=== PATIENT | female | born 1970 | race Caucasian/White ===

== ENCOUNTER 2016-11-19 22:41 | Emergency (ER) | payer OTHER, MEDICAID ==
[2016-11-19 22:53] VITALS: TEMP 97.3
--- NOTE | 2016-11-19 23:33 | EDPHY ---
H & P Stated Complaint: l sided chest pain to touch and mvmt HPI/ROS: HPI CHIEF COMPLAINT: Left-sided musculoskeletal chest pain HISTORY OF PRESENT ILLNESS: This patient very pleasant 46-year-old female significant past medical history for chronic low back pain and takes anti- inflammatories for this, she presents to the emergency room by private vehicle stating that she has left-sided lateral rib pain it is exquisitely tender when she moves her left arm or has rotation of her neck. She also tells me it hurts when she goes to sit up. Also hurts when you press on her left lateral ribs. She denies any injury. She is adamant that she does not think this is musculoskeletal pain. She does not remember any injury. She denies shortness of breath. She does endorse pleuritic pain with this. denies productive cough, fever. Past Medical History: Chronic low back pain Past Surgical History: No recent surgery Social History: Denies daily use of drugs alcohol tobacco products Family History: Noncontributory ROS REVIEW OF SYSTEMS: A comprehensive 10 point review of systems is otherwise negative aside from elements mentioned in the history of present illness. Exam Constitutional triage nursing summary reviewed, vital signs reviewed, awake/ alert. Eyes normal conjunctivae and sclera, EOMI, PERRLA. HENT normal inspection, atraumatic, moist mucus membranes, no epistaxis, neck supple/ no meningismus, no raccoon eyes. Respiratory clear to auscultation bilaterally, normal breath sounds, no respiratory distress, no wheezing. Cardiovascular chest wall: Tender palpation over the lateral left chest wall. With left arm extension and resistance she has exquisite pain to left lateral chest wall, no rash visualize, rate normal, regular rhythm, no murmur, no edema , distal pulses normal. Gastrointestinal soft, non-tender, no rebound, no guarding, normal bowel sounds, no distension, no pulsatile mass. Genitourinary no CVA tenderness. Musculoskeletal no midline vertebral tenderness, full range of motion, no calf swelling, no tenderness of extremities, no meningismus, good pulses, neurovascularly intact. Skin pink, warm, & dry, no rash, skin atraumatic. Neurologic awake, alert and oriented x 3, AAOx3, moves all 4 extremities equally, motor intact, sensory intact, CN II-XII intact, normal cerebellar, normal vision, normal speech. Psychiatric normal mood/affect. Heme/Lymph/Immune no lymphadenopathy. Differential Diagnosis: includes but is not limited to in a particular order musculoskeletal chest wall pain, rib fracture, intercostal muscle injury, pleurisy, pneumonia, lung tumor, pulmonary embolism, doubt acute coronary syndrome Medical Decision Making: plan for this patient to have an IV established received IV Toradol for acute pain control musculoskeletal nature, chest x-ray two view to evaluate for rib fractures, D-dimer. Re-evaluation: EKG interpretation by me on record in [facility] system. Impression time of EKG 0004: This is sinus rhythm rate of 65, T-wave abnormality noted in V1, V2 otherwise unremarkable EKG. 0103: re-examination at this time patient is resting comfortably no acute distress. Blood work, EKG, D-dimer, troponin, chest x-ray are reviewed and are unremarkable. No evidence of acute rib fracture. Clinically on exam I believe this to be a intracostal muscle tear pull. I do recommend she takes anti- inflammatory pain medicine for this. Follow up with primary care doctor however return emergency room if there is any worsening symptoms questions or concerns. Source: Patient - Personal History LMP (Females 10-55): Now Current Tetanus/Diphtheria Vaccine: Unsure Current Tetanus Diphtheria and Acellular Pertussis (TDAP): Unsure - Medical/Surgical History Hx Asthma: No Hx Chronic Respiratory Disease: No Hx Diabetes: No Hx Cardiac Disease: No Hx Renal Disease: No Hx Cirrhosis: No Hx Alcoholism: No Hx HIV/AIDS: No Hx Splenectomy or Spleen Trauma: No Other PMH: tonsils - Social History Smoking Status: Never smoked Constitutional: Initial Vital Signs Temperature (C) 36.3 C 11/19/16 22:49 Heart Rate 69 11/19/16 22:49 Respiratory Rate 20 11/19/16 22:49 Blood Pressure 132/77 H 11/19/16 22:49 O2 Sat (%) 98 11/19/16 22:49 O2 (L/minute) 2 Allergies/Adverse Reactions: No Known Allergies Allergy (Verified 02/09/12 23:04) Home Medications: Medication Instructions Recorded celeCOXIB 11/19/16 Medical Decision Making - Data Points Laboratory Results: Laboratory Results 11/19/16 23:50 11/19/16 23:50 11/19/16 11/19/16 11/19/16 23:50 23:50 23:50 WBC 5.56 10^3/uL 10^3/uL (3.80-9.50) RBC 4.29 10^6/uL 10^6/uL (4.18-5.33) Hgb 13.4 g/dL g/dL (12.6-16.3) Hct 39.4 % % (38.0-47.0) MCV 91.8 fL fL (81.5-99.8) MCH 31.2 pg pg (27.9-34.1) MCHC 34.0 g/dL g/dL (32.4-36.7) RDW 11.5 % % (11.5-15.2) Plt Count 224 10^3/uL 10^3/uL (150-400) MPV 9.2 fL fL (8.7-11.7) Neut % (Auto) 53.0 % % (39.3-74.2) Lymph % (Auto) 36.5 % % (15.0-45.0) [place] % (Auto) 8.3 % % (4.5-13.0) Eos % (Auto) 1.8 % % (0.6-7.6) Baso % (Auto) 0.2 % L % (0.3-1.7) Nucleat RBC Rel Count 0.0 % % (0.0-0.2) Absolute Neuts (auto) 2.95 10^3/uL 10^3/uL (1.70-6.50) Absolute Lymphs (auto) 2.03 10^3/uL 10^3/uL (1.00-3.00) Absolute Monos (auto) 0.46 10^3/uL 10^3/uL (0.30-0.80) Absolute Eos (auto) 0.10 10^3/uL 10^3/uL (0.03-0.40) Absolute Basos (auto) 0.01 10^3/uL L 10^3/uL (0.02-0.10) Absolute Nucleated RBC 0.00 10^3/uL 10^3/uL (0-0.01) Immature Gran % 0.2 % % (0.0-1.1) Immature Gran # 0.01 10^3/uL 10^3/uL (0.00-0.10) PT 13.3 SEC SEC (12.0-15.0) INR 1.02 (0.83-1.16) APTT 27.5 SEC SEC (23.0-38.0) D-Dimer < 0.27 ug/mLFEU ug/mLFEU (0.00-0.50) Sodium 143 mEq/L mEq/L (134-144) Potassium 3.7 mEq/L mEq/L (3.5-5.2) Chloride 107 mEq/L mEq/L (97-110) Carbon Dioxide 26 mEq/l mEq/l (22-31) Anion Gap 10 mEq/L mEq/L (8-16) BUN 12 mg/dL mg/dL (7-23) Creatinine 0.6 mg/dL mg/dL (0.6-1.0) Estimated GFR > 60 Glucose 76 mg/dL mg/dL (70-100) Calcium 9.3 mg/dL mg/dL (8.5-10.4) Magnesium 2.1 mg/dL mg/dL (1.6-2.3) Total Bilirubin 0.5 mg/dL mg/dL (0.1-1.4) Conjugated Bilirubin 0.2 mg/dL mg/dL (0.0-0.5) Unconjugated Bilirubin 0.3 mg/dL mg/dL (0.0-1.1) AST 27 IU/L IU/L (14-46) ALT 34 IU/L IU/L (9-52) Alkaline Phosphatase 54 IU/L IU/L (38-126) Creatine Kinase 75 IU/L IU/L (0-156) CK-MB (CK-2) Fraction 1.73 ng/mL ng/mL (0-3.19) Troponin I < 0.012 ng/mL ng/mL (0-0.034) NT-Pro-B Natriuret Pep 34 pg/mL pg/mL (0-125) Total Protein 6.4 g/dL g/dL (6.3-8.2) Albumin 4.0 g/dL g/dL (3.5-5.0) Lipase 171.0 IU/L IU/L (23-300) Medications Given: Discontinued Medications Sodium Chloride (Ns) 500 mls @ 0 mls/hr IV ONCE ONE PRN Reason: As Directed Stop: 11/19/16 23:47 Last Admin: 11/19/16 23:58 Dose: 500 mls Ketorolac Tromethamine (Toradol) 30 mg IVP EDNOW ONE Stop: 11/19/16 23:48 Last Admin: 11/19/16 23:58 Dose: 30 mg Departure - Departure Disposition: Home, Routine, Self-Care Clinical Impression: Rib pain on left side Condition: Good Instructions: Thoracic Pain (ED), Musculoskeletal Pain (ED) Additional Instructions: 1. return emergency room if he develops worsening symptoms questions or concerns. 2. Please follow up with her primary care doctor. 3. please take anti-inflammatory pain medicine. Referrals: NOT,SURE [Other] - As per Instructions
[2016-11-19] MEDS ORDERED: NS 500 ML IV ONE (23:46)
[2016-11-19] MEDS ORDERED: KETOROLAC 30 MG/1 ML SDV IVP ONE (23:47)
--- NOTE | 2016-11-20 00:05 | CPEKG ---
Heart Rate: 65 RR Interval: 923 P-R Interval: 176 QRSD Interval: 86 QT Interval: 452 QTC Interval: 470 P [place]: 80 QRS [place]: 77 T Wave [employer] [place]: 78 EKG Severity - ABNORMAL ECG - EKG Impression: SINUS RHYTHM EKG Impression: PROBABLE LEFT ATRIAL ABNORMALITY EKG Impression: NONSPECIFIC T ABNORMALITIES, ANT-LAT LEADS EKG Impression: RELATIVELY UNCHANGED IN COMPARISON TO PRIOR Electronically Signed By: Tavo Goodman 26-Nov-2016 16:35:51
[2016-11-20 00:20] LABS: % IMMATURE GRANULYOCYTES 0.2 % (0.0-1.1); ABSOLUTE IMMATURE GRANULOCYTES 0.01 10^3/uL (0.00-0.10); ADD DIFF? NO; ADD MORPH? NO; ADD SCAN? NO; ATYPICAL LYMPHOCYTE FLAG 20 (0-99); FRAGMENT RBC FLAG 0 (0-99); HEMATOCRIT 39.4 % (38.0-47.0); HEMOGLOBIN 13.4 g/dL (12.6-16.3); LEFT SHIFT FLG 0 (0-99); LIPEMIA HEMOLYSIS FLAG 90 (0-99); MEAN CELL HEMOGLOBIN 31.2 pg (27.9-34.1); MEAN CELL VOLUME 91.8 fL (81.5-99.8); MEAN PLATELET VOLUME 9.2 fL (8.7-11.7); PLATELET CLUMPS FLAG 0 (0-99); PLATELET COUNT 224 10^3/uL (150-400); RED BLOOD CELL COUNT 4.29 10^6/uL (4.18-5.33); RED CELL DISTRIBUTION WIDTH 11.5 % (11.5-15.2)
[2016-11-20 00:24] LABS: INR 1.02 (0.83-1.16); PROTIME(PATIENT) 13.3 SEC (12.0-15.0)
[2016-11-20 00:25] LABS: ALANINE AMINOTRANSFERASE 34 IU/L (9-52); ALKALINE PHOSPHATASE 54 IU/L (38-126); ANION GAP 10 mEq/L (8-16); ASPARTATE AMINOTRANSFERASE 27 IU/L (14-46); BILIRUBIN,TOTAL 0.5 mg/dL (0.1-1.4); BILIRUBIN-CONJUGATED 0.2 mg/dL (0.0-0.5); BILIRUBIN-UNCONJUGATED 0.3 mg/dL (0.0-1.1); CALCIUM 9.3 mg/dL (8.5-10.4); CARBON DIOXIDE 26 mEq/l (22-31); CHLORIDE 107 mEq/L (97-110); CREATININE 0.6 mg/dL (0.6-1.0); GLOMERULAR FILTRATION RATE > 60; GLUCOSE 76 mg/dL (70-100); MAGNESIUM 2.1 mg/dL (1.6-2.3); POTASSIUM 3.7 mEq/L (3.5-5.2); SODIUM 143 mEq/L (134-144); TOTAL PROTEIN 6.4 g/dL (6.3-8.2)
[2016-11-20 00:28] LABS: APTT 27.5 SEC (23.0-38.0)
[2016-11-20 00:39] LABS: CREATINE KINASE-MB FRACTION 1.73 ng/mL (0-3.19); TROPONIN I < 0.012 ng/mL (0-0.034)
[2016-11-20 01:13] VITALS: BP 110/65; PULSE 72; RESP 16; O2SAT 97
== END 2016-11-20 01:17 | disposition home or self-care (01) ==
DX: R07.81 Pleurodynia (principal)
CPT/HCPCS: J1885

== ENCOUNTER 2017-07-08 14:07 | Emergency (ER) | payer OTHER, MEDICAID ==
[2017-07-08 14:14] VITALS: RESP 18; TEMP 98.1
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
--- NOTE | 2017-07-08 14:29 | CPEKG ---
Heart Rate: 58 RR Interval: 1034 P-R Interval: 176 QRSD Interval: 86 QT Interval: 452 QTC Interval: 445 P [place]: 79 QRS [place]: 77 T Wave [place]: 75 EKG Severity - NORMAL ECG - EKG Impression: SINUS RHYTHM Electronically Signed By: Estuardo Abbott 08-Jul-2017 15:29:05
[2017-07-08 14:58] LABS: % IMMATURE GRANULYOCYTES 0.3 % (0.0-1.1); HEMATOCRIT 42.1 % (38.0-47.0); HEMOGLOBIN 14.3 g/dL (12.6-16.3); MEAN CELL HEMOGLOBIN 31.9 pg (27.9-34.1); MEAN PLATELET VOLUME 9.4 fL (8.7-11.7); PLATELET COUNT 215 10^3/uL (150-400); RED BLOOD CELL COUNT 4.48 10^6/uL (4.18-5.33); RED CELL DISTRIBUTION WIDTH 11.5 % (11.5-15.2)
[2017-07-08 14:59] LABS: ABSOLUTE IMMATURE GRANULOCYTES 0.02 10^3/uL (0.00-0.10); ADD DIFF? NO; ADD MORPH? NO; ADD SCAN? NO; ATYPICAL LYMPHOCYTE FLAG 20 (0-99); FRAGMENT RBC FLAG 10 (0-99); LEFT SHIFT FLG 0 (0-99); LIPEMIA HEMOLYSIS FLAG 90 (0-99); PLATELET CLUMPS FLAG 0 (0-99)
[2017-07-08 15:01] LABS: CALCIUM 9.2 mg/dL (8.5-10.4); CARBON DIOXIDE 26 mEq/l (22-31); CHLORIDE 104 mEq/L (97-110); CREATININE 0.7 mg/dL (0.6-1.0); GLOMERULAR FILTRATION RATE > 60; GLUCOSE 75 mg/dL (70-100); SODIUM 142 mEq/L (134-144)
[2017-07-08 15:13] LABS: TROPONIN I < 0.012 ng/mL (0.000-0.034)
[2017-07-08 15:16] LABS: ANION GAP 12 mEq/L (8-16); POTASSIUM 4.3 mEq/L (3.5-5.2)
[2017-07-08] MEDS ORDERED: HYDROmorphONE/DILAUDID 1 MG/ML INJ ONE (15:27)
[2017-07-08] MEDS ORDERED: MAG HYDROX/AL HYDROX/SIMETH 30 ML UDCUP PO ONE (15:46)
[2017-07-08] MEDS ORDERED: HYOSCYAMINE SULFATE 0.125 MG TAB PO ONE (15:46)
[2017-07-08] MEDS ORDERED: LIDOCAINE 2% VISCOUS 15 ML UDCUP PO ONE (15:46)
[2017-07-08 18:07] VITALS: BP 119/78; PULSE 50; O2SAT 95
== END 2017-07-08 18:15 | disposition home or self-care (01) ==
DX: R07.9 Chest pain, unspecified (principal); I25.10 Atherosclerotic heart disease of native coronary artery without angina pectoris
CPT/HCPCS: J1170